=== PATIENT | female | born 1955 | race Caucasian/White ===

== ENCOUNTER 2019-11-06 15:14 | Emergency (ER) | payer MEDICARE, BC ==
[2019-11-06] MEDS ORDERED: cefTRIAXone 1 GM, Lidocaine 1% 2.1 ML IM ONE ×2 (15:57)
--- NOTE | 2019-11-06 15:59 | EDM.PDOC ---
ED HPI GENERAL MEDICAL PROBLEM - General Chief Complaint: Genitourinary Problem Stated Complaint: UTI Time Seen by Provider: 11/06/19 15:47 Source of Information: Reports: Patient, RN Notes Reviewed History Limitations: Reports: No Limitations - History of Present Illness INITIAL COMMENTS - FREE TEXT/NARRATIVE: 64-year-old female presents emergency department a complaint of urinary symptoms of burning frequency and urgency all of her symptoms are started today no fevers Bladder Pain Score (Numeric/FACES): 4 - Related Data Allergies Allergy/AdvReac Type Severity Reaction Status Date / Time No Known Allergies Allergy Verified 11/06/19 15:33 Home Meds: Home Meds Allopurinol [Zyloprim] 300 mg PO DAILY 11/06/19 [History] Cholecalciferol (Vitamin D3) [Vitamin D3] 1 tab PO DAILY 11/06/19 [History] Lisinopril/Hydrochlorothiazide [Lisinopril-Hctz 10-12.5 mg Tab] 1 tab PO DAILY 11/06/19 [History] Omeprazole 1 tab PO DAILY 11/06/19 [History] Simvastatin 1 tab PO DAILY 11/06/19 [History] metroNIDAZOLE [Metronidazole] 1 applic TOP BID 11/06/19 [History] Past Medical History HEENT History: Reports: Impaired Vision Cardiovascular History: Reports: High Cholesterol, Hypertension Gastrointestinal History: Reports: GERD [employer] History: Reports: Endometriosis, Musculoskeletal History: Reports: Arthritis, Fracture - Past Surgical History HEENT Surgical History: Reports: Other (See Below) Other HEENT Surgeries/Procedures: tongue lesion biopsied. GI Surgical History: Reports: Cholecystectomy, Silvestre Fundoplication Musculoskeletal Surgical History: Reports: Knee Replacement Social & Family History - Tobacco Use Smoking Status *Q: Never Smoker - Caffeine Use Caffeine Use: Reports: Coffee Other Caffeine Use: 2-4 cups per day - Recreational Drug Use Recreational Drug Use: No ED ROS GENERAL - Review of Systems Review Of Systems: See Below Constitutional: Denies: Fever, Chills : Reports: Dysuria, Frequency, Urgency ED EXAM, RENAL/ - Physical Exam Exam: See Below Exam Limited By: No Limitations General Appearance: Alert, WD/WN, No Apparent Distress Respiratory/Chest: No Respiratory Distress GI/Abdominal: Soft, Non-Tender Back Exam: No: CVA Tenderness (R), CVA Tenderness (L) Course - Vital Signs Last Recorded V/S: Last Vital Signs Temp 97.4 F 11/06/19 15:36 Pulse 84 11/06/19 15:36 Resp 16 11/06/19 15:36 BP 162/94 H 11/06/19 15:36 Pulse Ox 98 11/06/19 15:36 - Orders/Labs/Meds Orders: Active Orders 24 hr Category Date Time Status CULTURE URINE [RM] Urgent Lab 11/06/19 15:47 Ordered Labs: Laboratory Tests 11/06/19 Range/Units 15:28 Urine Color Red A (YELLOW) Urine Appearance Clear (CLEAR) Urine pH 7.0 (5.0-8.0) Ur Specific [place] 1.010 (1.008-1.030) Urine Protein 30 H (NEGATIVE) mg/dL Urine Glucose (UA) Negative (NEGATIVE) mg/dL Urine Ketones Negative (NEGATIVE) mg/dL Urine Occult Blood Large H (NEGATIVE) Urine Nitrite Negative (NEGATIVE) Urine Bilirubin Negative (NEGATIVE) Urine Urobilinogen 0.2 (0.2-1.0) EU/dL Ur Leukocyte Esterase Moderate H (NEGATIVE) Urine RBC 10-20 H (0-5) Urine WBC Semi-packed H (0-5) Ur Epithelial Cells Few Amorphous Sediment Few Urine Bacteria Rare Urine Mucus Not seen Departure - Departure Time of Disposition: 15:57 Disposition: Home, Self-Care 01 Condition: Good Clinical Impression: UTI (urinary tract infection) - Discharge Information Instructions: Urine Culture and Sensitivity Testing, Urinary Tract Infection, Adult Referrals: PCP,None [Primary Care Provider] - Additional Instructions: We will call you when culture results become available if the antibiotic choice is correct, please followup with your primary care provider in 3-5 days if not better, please call return to the emergency department with worsening of symptoms. Sepsis Event Note - Evaluation Sepsis Screening Result: No Definite Risk - Focused Exam Vital Signs: Vital Signs Temp Pulse Resp BP Pulse Ox 11/06/19 15:36 97.4 F 84 16 162/94 H 98 11/06/19 15:30 97.4 F 84 16 162/94 H 98 Date Exam was Performed: 11/06/19 Time Exam was Performed: 15:55 - My Orders Last 24 Hours: My Active Orders 11/06/19 15:47 CULTURE URINE [RM] Urgent - Assessment/Plan Last 24 Hours: My Active Orders 01/11/20 15:47 CULTURE URINE [RM] Urgent Plan: Assessment Acuity = acute Site and laterality = urinary tract infection Etiology = probable bacterial cause Manifestations = none Location of injury = Home Lab values = urinalysis reveals 10-20 RBCs consistent with a hematuria, packed WBCs consistent with pyuria Plan I did discuss options with her she elected to proceed with Rocephin 1 g IM x1 culture is pending follow-up primary care 3 to 5 days if no improvement This note was dictated using [employer] voice recognition software please call with any questions on syntax or grammar.
== END 2019-11-06 16:37 | disposition home or self-care (01) ==
LOC: JP.ED 15:14
DX: N39.0 Urinary tract infection, site not specified (principal); I10 Essential (primary) hypertension; K21.9 Gastro-esophageal reflux disease without esophagitis; Z90.49 Acquired absence of other specified parts of digestive tract; Z79.899 Other long term (current) drug therapy
CPT/HCPCS: 81001; 87086; 87088; 87186; 96372; 99283; J0696; J2001